=== PATIENT | female | born 1995 | race African-American/Black ===

== ENCOUNTER 2017-12-16 22:24 | Emergency (ER) | payer OTHER ==
[~2017-12-16] VITALS: Ht 152.4 cm; Wt 72.9 kg
[2017-12-16 22:31] VITALS: BP 127/92; PULSE 71; TEMP 99.3
[2017-12-16] MEDS ORDERED: NOVOLOG FLEX100 U/ML SQ (22:57)
== END 2017-12-16 23:11 | disposition home or self-care (01) ==
LOC: COL.ER 22:24
DX: S90.821A Blister (nonthermal), right foot, initial encounter (principal); E10.9 Type 1 diabetes mellitus without complications; Z79.4 Long term (current) use of insulin; W22.8XXA Striking against or struck by other objects, initial encounter

== ENCOUNTER 2017-12-31 22:51 | Emergency (ER) | payer OTHER ==
[~2017-12-31] VITALS: Ht 149.9 cm; Wt 71.4 kg
[~2017-12-31 22:51] MED LIST: NOVOLOG FLEX100 U/ML SQ
[2017-12-31 22:54] VITALS: TEMP 99.1
[2017-12-31] MEDS ORDERED: ZOVIA 1/35E 351 TAB PO (23:05)
[2017-12-31 23:43] LABS: COLLECTION METHOD CLEAN CATCH
[2017-12-31 23:49] LABS: MUCOUS Present /lpf; PH 5 (5-8); SQUAMOUS EPITHELIAL 0-2 /hpf; URINE APPEARANCE Clear; URINE BACTERIA None Seen /hpf; URINE BILIRUBIN Negative (NEGATIVE); URINE BLOOD Negative (NEGATIVE); URINE COLOR Colorless; URINE GLUCOSE 3+ (NEGATIVE); URINE KETONE Negative (NEGATIVE); URINE LEUKOCYTE ESTERASE Negative (NEGATIVE); URINE NITRATE Negative (NEGATIVE); URINE PROTEIN(semi-quant) Negative (NEGATIVE); URINE RBC 0-2 /hpf; URINE UROBILINOGEN Negative (NEGATIVE)
[2018-01-01] MEDS ORDERED: FLAGYL500 MG PO (00:04)
[2018-01-01 02:02] VITALS: BP 121/86; PULSE 72
[2018-01-01] MEDS ORDERED: AZITHROMYC1 GM/PACKE PO (02:12)
== END 2018-01-01 00:46 | disposition home or self-care (01) ==
LOC: COL.ER 22:51
PROVIDERS: Physician Assistant
DX: N76.0 Acute vaginitis (principal); Z79.4 Long term (current) use of insulin

== ENCOUNTER 2018-02-04 01:01 | Emergency (ER) | payer OTHER ==
[~2018-02-04] VITALS: Ht 149.9 cm; Wt 70.5 kg
[~2018-02-04 01:01] MED LIST changes: +AZITHROMYC1 GM/PACKE PO; +FLAGYL500 MG PO; +ZOVIA 1/35E 351 TAB PO
[2018-02-04 01:11] VITALS: BP 147/91; PULSE 61; TEMP 98.7
[2018-02-04] MEDS ORDERED: LANTUS100 U/ML SQ (01:14)
[2018-02-04 01:37] LABS: COLLECTION METHOD CLEAN CATCH
[2018-02-04 01:43] LABS: PH 5 (5-8); URINE APPEARANCE Clear; URINE BACTERIA None Seen /hpf; URINE BILIRUBIN Negative (NEGATIVE); URINE BLOOD 1+ (NEGATIVE); URINE COLOR Straw; URINE GLUCOSE 3+ (NEGATIVE); URINE KETONE Negative (NEGATIVE); URINE LEUKOCYTE ESTERASE Trace (NEGATIVE); URINE NITRATE Negative (NEGATIVE); URINE PROTEIN(semi-quant) Negative (NEGATIVE); URINE RBC 0-2 /hpf; URINE UROBILINOGEN Negative (NEGATIVE)
[2018-02-04] MEDS ORDERED: CEPHALEXIN500 M1 PO (02:11)
== END 2018-02-04 02:26 | disposition home or self-care (01) ==
LOC: COL.ER 01:01
PROVIDERS: Physician Assistant
DX: N39.0 Urinary tract infection, site not specified (principal); N89.8 Other specified noninflammatory disorders of vagina; E10.9 Type 1 diabetes mellitus without complications
CPT/HCPCS: J0696

== ENCOUNTER 2018-04-14 22:32 | Emergency (ER) | payer OTHER ==
[~2018-04-14] VITALS: Ht 149.9 cm; Wt 66.8 kg
[~2018-04-14 22:32] MED LIST changes: +CEPHALEXIN500 M1 PO; +LANTUS100 U/ML SQ
[2018-04-14 22:54] VITALS: BP 150/83; TEMP 99.3
[2018-04-15 00:03] LABS: COLLECTION METHOD CLEAN CATCH
[2018-04-15 00:08] LABS: BASO % 0.5 % (0.0-2.0); EOS # 0.1 (0.0-0.7); GRAN # 2.8 (1.4-6.5); GRAN % 45.7 % (42.2-75.2); HEMATOCRIT 38.4 % (35.0-45.0); HEMOGLOBIN 13.5 g/dl (12.0-15.0); LYMPH # 2.8 (1.2-3.4); LYMPH % 45.3 % (20.0-51.0); MEAN CELL VOLUME 85 fl (80.0-95.0); MEAN CORPUSCULAR HEMOGLOBIN 30 pg (26.0-32.0); MEAN CORPUSCULAR HGB CONC 35 g/dl (33.0-37.0); MEAN PLATELET VOLUME 10.9 fl (7.4-10.4); MONO # 0.4 (0.1-0.6); MONO % 7.2 % (1.7-9.3); PLATELET COUNT 241 K/mm3 (130-400); RED BLOOD COUNT 4.51 M/mm3 (4.10-5.30); REDCELL DISTRIBUTION WIDTH-CV 12.4 % (11.5-14.5)
[2018-04-15 00:13] LABS: PH 5 (5-8); SQUAMOUS EPITHELIAL None Seen /hpf; URINE APPEARANCE Clear; URINE BACTERIA None Seen /hpf; URINE BILIRUBIN Negative (NEGATIVE); URINE BLOOD Negative (NEGATIVE); URINE COLOR Straw; URINE GLUCOSE 3+ (NEGATIVE); URINE KETONE Negative (NEGATIVE); URINE LEUKOCYTE ESTERASE Negative (NEGATIVE); URINE NITRATE Negative (NEGATIVE); URINE PROTEIN(semi-quant) Negative (NEGATIVE); URINE RBC 0-2 /hpf; URINE UROBILINOGEN Negative (NEGATIVE)
[2018-04-15 00:19] LABS: ALANINE AMINOTRANSFERASE 22 U/L (9-52); ALBUMIN 3.8 gm/dL (3.5-5.0); ALKALINE PHOSPHATASE 73 U/L (50-136); ANION GAP 10 mmol/L (7-16); AST,SGOT 17 U/L (15-37); BILIRUBIN,TOTAL 0.4 mg/dL (0.0-1.0); BLOOD UREA NITROGEN 10 mg/dL (7-17); CARBON DIOXIDE 24 mmol/L (22-30); CHLORIDE 100 mmol/L (98-107); CREATININE, serum 0.58 mg/dL (0.52-1.25); GLUCOSE 284 mg/dL (74-106); POTASSIUM 3.7 mmol/L (3.4-5.0); SODIUM 134 mmol/L (137-145); TOTAL PROTEIN 6.5 gm/dL (6.4-8.2)
[2018-04-15 00:45] LABS: ACETONE,SERUM NEGATIVE
[2018-04-15] MEDS ORDERED: FLAGYL500 MG PO (01:55)
[2018-04-15 02:17] VITALS: PULSE 80
== END 2018-04-15 02:17 | disposition home or self-care (01) ==
LOC: COL.ER 22:32
PROVIDERS: Emergency Medicine
DX: A56.02 Chlamydial vulvovaginitis (principal); B37.3 Candidiasis of vulva and vagina; E10.9 Type 1 diabetes mellitus without complications; Z79.4 Long term (current) use of insulin
CPT/HCPCS: J0696; J7030